=== PATIENT | female | born 2000 | race Two or more races ===

== ENCOUNTER 2024-11-16 10:37 | Day surgery (SDC) | payer OTHER ==
[2024-11-16] MEDS: FERRIC CARBOXYMALTOSE 750 MG in SODIUM CHLORIDE 250 ML IVPB ONE (10:51)
[2024-11-16 11:18] VITALS: RESP 18; TEMP 99
[2024-11-16 13:31] VITALS: BP 123/70; PULSE 69
== END 2024-11-16 12:00 | disposition home or self-care (01) ==
LOC: JONCNONCHE 10:37
PROVIDERS: ATTEND Internal Medicine Hematology & Oncology
PROC: 3E033GC Introduction of Other Therapeutic Substance into Peripheral Vein, Percutaneous Approach (ICD-10-PCS; principal; 2024-11-16)
DX: D50.9 Iron deficiency anemia, unspecified (principal)
CPT/HCPCS: J1439